=== PATIENT | male | born 1970 | race Caucasian/White ===

== ENCOUNTER 2017-11-24 13:29 | Inpatient (IN) ==
[2017-11-24] MEDS ORDERED: 0.9 % Sodium Chloride 1,000 ML IVC ONE (14:07)
[2017-11-24] MEDS ORDERED: Isovue-370 500 ML INFUS..BTL IV ONE (14:08)
[2017-11-24] MEDS ORDERED: *HR* OxyCODONE/APAP 10/325 TABLET PO ONE (14:09)
--- NOTE | 2017-11-24 14:16 | Emergency Department Note ---
Disposition Clinical Impression: Cellulitis of left elbow Sepsis Qualifiers: Sepsis type: sepsis due to unspecified organism Qualified Code(s): A41.9 - Sepsis, unspecified organism Disposition: Admitted As Inpatient Condition: Good Forms: ED Satisfaction Letter Extremity Problem HPI - General Chief complaint: ED Wound/Laceration Stated complaint: wound LUE Time Seen by Provider: 11/24/17 13:44 Source: patient Mode of arrival: private vehicle Limitations: no limitations Nursing Notes Reviewed: Yes Vital Signs Reviewed: Yes - History of Present Illness HPI Narrative: 46-year-old male no medical history presents to the ER with a complaint of left elbow wound. States the area started as what appeared to be a pimple one week ago. For the last 4-5 days and noticed redness around his elbow as well as pus coming from the wound. He denies any recent trauma. Reports subjective fevers and chills at home. He has felt dizzy and having chest pain today. Denies any recent antibiotic use. Last tetanus was one year ago. Denies a history of diabetes or IV drug abuse. Reports pain in his elbow that goes half way up into his bicipital area as well as down to his left wrist. Denies any other injuries. Pt Subjective Complaint: extremity pain, extremity swelling Onset (ago): day(s) Consistency: constant Injury Location: left, upper extremity Pain Scale: 10 Radiation: proximal, distal Improves with: nothing Worsens with: range of motion Associated symptoms: Reports: chest pain, fever, myalgias, arthralgias, swelling , redness - Related Data Home Medications Medication Instructions Recorded Confirmed No Known Home Drugs 11/24/17 11/24/17 Allergies Allergy/AdvReac Type Severity Reaction Status Date / Time No Known Allergies Allergy Verified 11/24/17 17:09 All systems ED: reviewed and negative except as stated. Constitutional: Reports: fever, chills Cardiovascular: Reports: chest pain Respiratory: Denies: dyspnea Gastrointestinal: Denies: abdominal pain, nausea, vomiting, diarrhea Musculoskeletal: Reports: joint swelling, other (Left elbow pain) Integumentary: Reports: rash, lesions Past Medical History - Past Medical History Attestation: Yes The following information was validated with the patient. Source: patient Medical history: Reports: no medical history Psychiatric history: Reports: no psych history - Social History Smoking Status: Former smoker Smokeless Tobacco Status: No Alcohol use: Reports: none Drug use: Reports: none Physical Exam - General Limitations: no limitations General appearance: alert, anxious - Head Head exam: atraumatic, normocephalic, normal inspection - Eye Eye exam: Present: normal appearance - ENT ENT exam: normal exam - Neck Neck exam: Present: normal inspection - Chest Chest inspection: Present: normal inspection, symmetric chest wall rise - Respiratory Respiratory exam: Present: normal lung sounds bilaterally - Cardiovascular Cardiovascular exam: Present: normal rhythm, tachycardia, normal heart sounds - Abdominal Exam Abdominal exam: Present: soft, Non-Tender. Absent: tenderness, distention, rigidity - Extremities Exam Extremities exam: Present: normal inspection, full ROM - Expanded Upper Extremity Exam Shoulder exam: Present: normal inspection, full ROM Arm exam: Present: normal inspection, full ROM Elbow exam: Present: swelling (There is diffuse soft tissue swelling to the left elbow as well as an open area with purulent drainage to the dorsum of the left elbow. There is a roughly 2 inch circumferential area of erythema surrounding the left elbow. The patient has tenderness extending up to the mid shaft of the left humerus as well as distal forearm. There is no crepitus. He has free range of motion of his left shoulder as well as his left wrist.) Forearm/Wrist exam: Present: normal inspection Hand exam: Present: normal inspection, full ROM - Expanded Lower Extremity Exam Hip/Pelvis exam: Present: normal inspection, full ROM Upper leg exam: Present: normal inspection, full ROM Knee exam: Present: normal inspection, full ROM Lower leg exam: Present: normal inspection, full ROM Ankle exam: Present: normal inspection, full ROM Foot/toe exam: Present: normal inspection, full ROM - Skin Skin exam: Present: warm, dry Course Course Narrative: Patient seen and examined. Vital signs reviewed. He does have limited range of motion of his left elbow due to pain and swelling. Concern at this point for septic joint versus myositis versus necrotizing fasciitis. Plan for CT imaging of the left arm, labs, lactate, blood cultures, wound culture, EKG, chest x-ray and troponin for his chest pain. Patient given IV fluids and pain medications. Likely admission. - Reevaluation(s) Reevaluation #1: Discussed results of imaging labs with patient. His pain is well controlled. He is agreeable with admission. Vital Signs Temperature 98.0 F 11/24/17 13:36 Pulse Rate 113 10/14/18 13:36 Respiratory Rate 22 11/24/17 13:36 Blood Pressure 132/88 11/24/17 13:36 O2 Sat by Pulse Oximetry 100 11/24/17 13:36 Temperature 98.0 F 11/24/17 13:42 Pulse Rate 97 11/24/17 17:00 Respiratory Rate 22 11/24/17 17:00 Blood Pressure 129/77 11/24/17 17:00 O2 Sat by Pulse Oximetry 98 11/24/17 17:00 Oxygen Delivery Oxygen Delivery Room Air Extremity Problem, Nontraumati - MDM Narrative Medical decision making narrative: 46-year-old male with 1 week of cellulitis to the left arm. He is well- appearing here. He does have range of motion of the left elbow. He is noted to have significant cellulitis and soft tissue edema surrounding the elbow. He does have a leukocytosis with a left shift. Patient received IV fluids, vancomycin and Zosyn after blood cultures and wound cultures were obtained. He is admitted to the hospitalist service for further evaluation. - Lab Data Lab results reviewed: Yes I reviewed the patient's lab results. Result diagrams: 11/24/17 14:20 11/24/17 14:20 Lab Results 11/24/17 11/24/17 11/24/17 Range/Units 14:20 14:20 14:20 WBC 16.5 H (4.3-11.1) K/mcL RBC 4.73 (4.19-5.50) M/mcL Hgb 14.0 (12.9-16.9) g/dL Hct 43.3 (37.5-50.1) % MCV 91.5 (83.0-100.0) fL MCH 29.6 (28.0-33.3) pg MCHC 32.3 (31.6-35.5) g/dL RDW 13.2 (11.5-14.5) % Plt Count 254 (140-400) K/mcL MPV 11.0 (9.4-12.4) fL Immature Gran % 1.3 (0-4) % Seg Neutrophils % 72.3 % Lymphocytes % 15.8 % Monocytes % 9.6 % Eosinophils % 0.5 % Basophils % 0.5 % Neutrophils # 11.9 H (1.6-8.9) K/mcL Lymphocytes # 2.6 (0.6-4.6) K/mcL Monocytes # 1.6 H (0.0-1.3) K/mcL Eosinophils # 0.1 (0.0-0.6) K/mcL Basophils # 0.1 (0.0-0.2) K/mcL Immature Plt Fraction 5.1 (1.1-6.1) % ESR 70 H (0-10) mm/hr PT 13.0 H (9.4-12.1) Seconds INR 1.2 Sodium (136-145) mEq/L Potassium (3.5-5.1) mEq/L Chloride (98-107) mEq/L Carbon Dioxide (23-29) mEq/L BUN (6-20) mg/dL Creatinine (0.70-1.30) mg/dL Est GFR ( Amer) (> 60) Est GFR (Non-Af Amer) (> 60) BUN/Creatinine Ratio (6-26) Glucose (70-105) mg/dL Calculated Osmolality (280-300) Lactic Acid (0.5-2.2) mmol/L Calcium (8.6-10.3) mg/dL Troponin I (< 0.04) ng/mL C-Reactive Protein (Less than 10) mg/L 11/24/17 11/24/17 11/24/17 Range/Units 14:20 14:20 14:52 WBC (4.3-11.1) K/mcL RBC (4.19-5.50) M/mcL Hgb (12.9-16.9) g/dL Hct (37.5-50.1) % MCV (83.0-100.0) fL MCH (28.0-33.3) pg MCHC (31.6-35.5) g/dL RDW (11.5-14.5) % Plt Count (140-400) K/mcL MPV (9.4-12.4) fL Immature Gran % (0-4) % Seg Neutrophils % % Lymphocytes % % Monocytes % % Eosinophils % % Basophils % % Neutrophils # (1.6-8.9) K/mcL Lymphocytes # (0.6-4.6) K/mcL Monocytes # (0.0-1.3) K/mcL Eosinophils # (0.0-0.6) K/mcL Basophils # (0.0-0.2) K/mcL Immature Plt Fraction (1.1-6.1) % ESR (0-10) mm/hr PT (9.4-12.1) Seconds INR Sodium 132 L (136-145) mEq/L Potassium 4.3 (3.5-5.1) mEq/L Chloride 98 (98-107) mEq/L Carbon Dioxide 29 (23-29) mEq/L BUN 11 (6-20) mg/dL Creatinine 0.79 (0.70-1.30) mg/dL Est GFR ( Amer) > 60 (> 60) Est GFR (Non-Af Amer) > 60 (> 60) BUN/Creatinine Ratio 14 (6-26) Glucose 145 H (70-105) mg/dL Calculated Osmolality 276 L (280-300) Lactic Acid 1.6 (0.5-2.2) mmol/L Calcium 9.4 (8.6-10.3) mg/dL Troponin I < 0.03 (< 0.04) ng/mL C-Reactive Protein 40 H (Less than 10) mg/L - Radiology Data Radiology results reviewed: Yes I reviewed the patient's radiology results. Upper Extremity CT 11/24/17 14:08 IMPRESSION: 1. Notable soft tissue swelling and cellulitis along the dorsal aspect of the distal humerus and left forearm. 2. No abnormal fluid collections/effusions about the elbow joint 3. No osseous abnormality. D/ / Alex Cheng / Alex Cheng Interpreting Provider: Alex Cheng Chest X-Ray 11/24/17 14:16 IMPRESSION: No acute process. D/ / Boo Roca MD / Boo Roca MD Interpreting Provider: Boo Roca MD - EKG Data EKG attestation: Yes I reviewed and interpreted this EKG. EKG results narrative: EKG demonstrates sinus tachycardia with a rate of 109. Normal axis. Normal intervals. Normal R-wave progression. No gross ST elevations or depressions. No acute ischemic findings. No significant changes from previous EKG dated 02/26. Nicholas - Nicholas Situation: Demographics, MOA Background: Presenting Complaint, Relevant PMH, Meds, & Allergies Assessment: Vital Signs, Course and respsone to treatment, Exam Concerns, Patient/Family Expectation, Pertinant Lab Results Recommendation: Barrier(s) to disposition, Recommendation based on pending studies, treatments, or consults Nicholas Report Given to: Dr. Rigoberto Peterson Repor Time: 17:36
--- NOTE | 2017-11-24 14:38 | Emergency Department Note ---
Disposition Clinical Impression: Cellulitis of left elbow, Sepsis Disposition: Admitted As Inpatient Condition: Good Extremity Problem HPI - General Chief complaint: ED Wound/Laceration Stated complaint: wound LUE Time Seen by Provider: 11/24/17 13:44 Source: patient Mode of arrival: private vehicle Limitations: no limitations Nursing Notes Reviewed: Yes Vital Signs Reviewed: Yes - History of Present Illness Consistency: constant Injury Location: left, upper extremity Pain Scale: 10 Improves with: nothing Worsens with: range of motion Associated symptoms: Reports: chest pain, fever, myalgias, arthralgias, swelling , redness - Related Data Home Medications Medication Instructions Recorded Confirmed No Known Home Drugs 11/24/17 11/24/17 Allergies Allergy/AdvReac Type Severity Reaction Status Date / Time No Known Allergies Allergy Verified 11/24/17 17:09 Constitutional: Reports: fever, chills Cardiovascular: Reports: chest pain Respiratory: Denies: dyspnea Gastrointestinal: Denies: abdominal pain, nausea, vomiting, diarrhea Musculoskeletal: Reports: joint swelling, other (Left elbow pain) Integumentary: Reports: rash, lesions Past Medical History - Past Medical History Medical history: Reports: no medical history Psychiatric history: Reports: no psych history - Social History Smoking Status: Former smoker Smokeless Tobacco Status: No Alcohol use: Reports: none Drug use: Reports: none Physical Exam - General Limitations: no limitations General appearance: alert, anxious Course Vital Signs Temperature 98.0 F 11/24/17 13:36 Pulse Rate 113 11/24/17 13:36 Respiratory Rate 22 11/24/17 13:36 Blood Pressure 132/88 11/24/17 13:36 O2 Sat by Pulse Oximetry 100 11/24/17 13:36 Temperature 98.0 F 11/24/17 13:42 Pulse Rate 97 11/24/17 17:00 Respiratory Rate 22 11/24/17 17:00 Blood Pressure 129/77 11/24/17 17:00 O2 Sat by Pulse Oximetry 98 11/24/17 17:00 Oxygen Delivery Oxygen Delivery Room Air Extremity Problem, Nontraumati - Lab Data Result diagrams: 11/24/17 14:20 11/24/17 14:20 Lab Results 11/24/17 11/24/17 11/24/17 Range/Units 14:20 14:20 14:20 WBC 16.5 H (4.3-11.1) K/mcL RBC 4.73 (4.19-5.50) M/mcL Hgb 14.0 (12.9-16.9) g/dL Hct 43.3 (37.5-50.1) % MCV 91.5 (83.0-100.0) fL MCH 29.6 (28.0-33.3) pg MCHC 32.3 (31.6-35.5) g/dL RDW 13.2 (11.5-14.5) % Plt Count 254 (140-400) K/mcL MPV 11.0 (9.4-12.4) fL Immature Gran % 1.3 (0-4) % Seg Neutrophils % 72.3 % Lymphocytes % 15.8 % Monocytes % 9.6 % Eosinophils % 0.5 % Basophils % 0.5 % Neutrophils # 11.9 H (1.6-8.9) K/mcL Lymphocytes # 2.6 (0.6-4.6) K/mcL Monocytes # 1.6 H (0.0-1.3) K/mcL Eosinophils # 0.1 (0.0-0.6) K/mcL Basophils # 0.1 (0.0-0.2) K/mcL Immature Plt Fraction 5.1 (1.1-6.1) % ESR 70 H (0-10) mm/hr PT 13.0 H (9.4-12.1) Seconds INR 1.2 Sodium (136-145) mEq/L Potassium (3.5-5.1) mEq/L Chloride (98-107) mEq/L Carbon Dioxide (23-29) mEq/L BUN (6-20) mg/dL Creatinine (0.70-1.30) mg/dL Est GFR ( Amer) (> 60) Est GFR (Non-Af Amer) (> 60) BUN/Creatinine Ratio (6-26) Glucose (70-105) mg/dL Calculated Osmolality (280-300) Lactic Acid (0.5-2.2) mmol/L Calcium (8.6-10.3) mg/dL Troponin I (< 0.04) ng/mL C-Reactive Protein (Less than 10) mg/L 11/24/17 11/24/17 11/24/17 Range/Units 14:20 14:20 14:52 WBC (4.3-11.1) K/mcL RBC (4.19-5.50) M/mcL Hgb (12.9-16.9) g/dL Hct (37.5-50.1) % MCV (83.0-100.0) fL MCH (28.0-33.3) pg MCHC (31.6-35.5) g/dL RDW (11.5-14.5) % Plt Count (140-400) K/mcL MPV (9.4-12.4) fL Immature Gran % (0-4) % Seg Neutrophils % % Lymphocytes % % Monocytes % % Eosinophils % % Basophils % % Neutrophils # (1.6-8.9) K/mcL Lymphocytes # (0.6-4.6) K/mcL Monocytes # (0.0-1.3) K/mcL Eosinophils # (0.0-0.6) K/mcL Basophils # (0.0-0.2) K/mcL Immature Plt Fraction (1.1-6.1) % ESR (0-10) mm/hr PT (9.4-12.1) Seconds INR Sodium 132 L (136-145) mEq/L Potassium 4.3 (3.5-5.1) mEq/L Chloride 98 (98-107) mEq/L Carbon Dioxide 29 (23-29) mEq/L BUN 11 (6-20) mg/dL Creatinine 0.79 (0.70-1.30) mg/dL Est GFR ( Amer) > 60 (> 60) Est GFR (Non-Af Amer) > 60 (> 60) BUN/Creatinine Ratio 14 (6-26) Glucose 145 H (70-105) mg/dL Calculated Osmolality 276 L (280-300) Lactic Acid 1.6 (0.5-2.2) mmol/L Calcium 9.4 (8.6-10.3) mg/dL Troponin I < 0.03 (< 0.04) ng/mL C-Reactive Protein 40 H (Less than 10) mg/L Attestation Statement - Attestation Attestation: Resident Attestation: I examined this patient and my medical decision making was reviewed with the Resident Physician. I agree with the documented findings, disposition and treatment plan as described except to the extent set forth below. We independently had [id number] contact with the patient. Resident Dr. Lopez. Patient with no past medical history presents today for evaluation of left upper extremity infection. The patient states that he noticed a pimple on his elbow approximately 1 week ago. Patient states that it has progressed now to include an erythematous region approximately 3 cm x 3 cm in nature with underlying erythema that extends both to the distal upper arm and proximal forearm. Patient does have some range of motion as well as approximate 75% of passive range of motion intact. Neurovascularly intact distally. Patient is complaining of 10 out of 10 pain. The patient has had chills but no fevers or night sweats. Patient does not have an history of previous IV drug abuse. Concern is for cellulitis versus septic bursitis versus possible septic joint. Patient will receive blood work as well as CT scan of the upper extremity for further evaluation. Fluids and antibiotics have been started after initial evaluation.
[2017-11-24 15:06] LABS: Basophils # 0.1 K/mcL (0.0-0.2); Basophils % 0.5 %; Eosinophils # 0.1 K/mcL (0.0-0.6); Eosinophils % 0.5 %; Hematocrit 43.3 % (37.5-50.1); Immature Granulocytes % 1.3 % (0-4); Immature Platelets 5.1 % (1.1-6.1); Lymphocytes # 2.6 K/mcL (0.6-4.6); Lymphocytes % 15.8 %; Mean Corpuscular HGB Conc 32.3 g/dL (31.6-35.5); Mean Corpuscular Hemoglobin 29.6 pg (28.0-33.3); Mean Corpuscular Volume 91.5 fL (83.0-100.0); Monocytes # 1.6 K/mcL (0.0-1.3); Monocytes % 9.6 %; Neutrophils # 11.9 K/mcL (1.6-8.9); Platelet Count 254 K/mcL (140-400); Red Blood Count 4.73 M/mcL (4.19-5.50); Red Cell Distribution Width 13.2 % (11.5-14.5); Segmented Neutrophils % 72.3 %
[2017-11-24 15:12] LABS: INR 1.2
[2017-11-24 15:25] LABS: BUN/Creatinine Ratio 14 (6-26); Blood Urea Nitrogen 11 mg/dL (6-20); C-Reactive Protein 40 mg/L (Less than 10); Calcium 9.4 mg/dL (8.6-10.3); Carbon Dioxide 29 mEq/L (23-29); Chloride 98 mEq/L (98-107); Glucose 145 mg/dL (70-105); Osmolality,Calculated 276 (280-300); Potassium 4.3 mEq/L (3.5-5.1); Sodium 132 mEq/L (136-145); eGFR For Non-African Americans > 60 (> 60)
[2017-11-24] MEDS ORDERED: Piperacillin/Tazobactam 3.375 GM in Water for inj. (sterile) 20 ML 20 ML IVP ONE (15:34)
[2017-11-24] MEDS ORDERED: *HR* FentaNYL (PF) 100 MCG/2 ML VIAL IVP ONE (15:45)
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
[2017-11-24] MEDS ORDERED: traMADol 50 MG TABLET PO PRN (18:44)
[2017-11-24] MEDS ORDERED: Acetaminophen 325 MG TABLET PO PRN (18:44)
[2017-11-24] MEDS ORDERED: Naloxone 0.4 MG/ML INJ IVP PRN (18:44)
[2017-11-24] MEDS ORDERED: 0.9 % Sodium Chloride 1,000 ML IVC SCH (18:45)
[2017-11-24] MEDS: *HR* OxyCODONE Immed Rel 5 MG TABLET PO PRN (19:05)
[2017-11-24] MEDS: 0.9 % Sodium Chloride 1,000 ML IVC SCH (20:26)
[2017-11-25] MEDS ORDERED: Piperacillin/Tazobactam 3.375 GM in 0.9 % Sodium Chloride Mini Bag 100 ML IVPB SCH
[2017-11-25] MEDS: Piperacillin/Tazobactam 3.375 GM in 0.9 % Sodium Chloride Mini Bag 100 ML IVPB SCH ×3 (00:45→17:06)
[2017-11-25] MEDS: *HR* OxyCODONE Immed Rel 5 MG TABLET PO PRN ×4 (01:11→20:35)
[2017-11-25 05:37] LABS: Basophils # 0.1 K/mcL (0.0-0.2); Basophils % 0.5 %; Eosinophils # 0.1 K/mcL (0.0-0.6); Eosinophils % 0.3 %; Hematocrit 40.2 % (37.5-50.1); Hemoglobin 13.1 g/dL (12.9-16.9); Immature Granulocytes % 1.3 % (0-4); Lymphocytes # 3.7 K/mcL (0.6-4.6); Lymphocytes % 20.6 %; Mean Corpuscular HGB Conc 32.6 g/dL (31.6-35.5); Mean Corpuscular Hemoglobin 29.8 pg (28.0-33.3); Mean Corpuscular Volume 91.4 fL (83.0-100.0); Mean Platelet Volume 10.8 fL (9.4-12.4); Monocytes # 1.8 K/mcL (0.0-1.3); Monocytes % 10.4 %; Neutrophils # 11.9 K/mcL (1.6-8.9); Platelet Count 236 K/mcL (140-400); Red Cell Distribution Width 13.2 % (11.5-14.5); Segmented Neutrophils % 66.9 %
[2017-11-25 05:57] LABS: Albumin 3.2 g/dL (3.5-5.7); BUN/Creatinine Ratio 15 (6-26); Bilirubin,Direct 0.3 mg/dL (0.0-0.2); Bilirubin,Indirect 0.7 mg/dL (0.0-1.2); Blood Urea Nitrogen 13 mg/dL (6-20); Calcium 8.9 mg/dL (8.6-10.3); Carbon Dioxide 26 mEq/L (23-29); Chloride 99 mEq/L (98-107); Globulin 3.1 g/dL (2.4-3.5); Glucose 199 mg/dL (70-105); Magnesium 1.5 mg/dL (1.6-2.6); Osmolality,Calculated 274 (280-300); Phosphorous 2.7 mg/dL (2.7-4.5); Potassium 4.1 mEq/L (3.5-5.1); Sodium 129 mEq/L (136-145); Total Protein 6.3 g/dL (6.4-8.9); eGFR For Non-African Americans > 60 (> 60)
[2017-11-25] MEDS: 0.9 % Sodium Chloride 1,000 ML IVC SCH ×2 (07:01→17:03)
[2017-11-25] MEDS: *HR* Heparin 5,000 UNIT/ML VIAL SQ SCH ×2 (07:54→18:51)
--- NOTE | 2017-11-25 13:06 | Electrocardiograph Report ---
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
--- NOTE | 2017-11-25 16:26 | Orthopedic Consult Note ---
Date of Encounter: 11/25/17 Time of Encounter: 12:30 Assessment and Plan (1) Cellulitis of left elbow Current Visit: Yes Status: Acute No improvement overnight with IV abx per patient. WBC increased from 16.5 to 17.7 ESR 70, CRP 40 Preliminary wound cx show Gram + cocci presumptive MRSA CT elbow showed no fluid collection however there was a small area of fluctuance noted just proximal to the open wound on posterior elbow. Discussed case with Dr. Gonsalez who recommended I&D bedside. I discussed the procedure for left elbow I&D as well as r/b/a with the patient and he expressed understanding. Consent was obtained. left elbow was prepped and draped in sterile fashion and 10cc 1% lidocaine injected to anesthetize area. Hemostates were used to widen the opening already visible. Skin was noted to be macerated and easliy . Moderate amount of purulent drainage was able to be expressed with gentle palpation from the proximal side. Iodoform packing was placed to keep area open and allow continued drainage overnight. Patient tolerated procedure well Leave dressings in place unless become saturated then may reinforce or change as necessary. Continue to elevate arm. Continue working on ROM of elbow. Pain control per hospitalist team. Will reevaluate tomorrow. Will keep NPO after midnight and if there is no improvement overnight will consider taking to operating room for deeper wound exploration. History of Present Illness Chief complaint: left elbow pain HPI: Mr. Toribio is a 46 year old male who presented to ER with left elbow pain that started about 1 weeks ago as a "pimple" on elbow and continued to worsen and get bigger over the past week. He states redness started about 5 days ago and then the pimple area opened up about 2-3 days ago and has had pus drainage since then. Denies any known injury to area. Denies IVDA. Pain continued to worsen and is worst with any motion. Denies any numbness or tingling. He has had fevers and chills for the past several days. Denies any other symptoms at this time. Denies any history of other infections or elbow issues like this in past. Past Med Surg Social Fam HX - Past Medical History Medical history: no medical history Psychiatric history: no psych history - Past Surgical History Surgical History: appendectomy Additional surgical history: right knee replaced - Social History Smoking Status: Former smoker Smokeless Tobacco Status: No Alcohol use: none Drug use: none Medications and Allergies No Known Home Drugs 11/24/17 [History] 3 Allergy/AdvReac Type Severity Reaction Status Date / Time No Known Allergies Allergy Verified 11/24/17 17:09 All Systems Reviewed: The remainder of the systems were reviewed and are negative - Constitutional Constitutional: as per HPI - Cardiovascular Cardiovascular: as per HPI - Respiratory Respiratory: as per HPI - Musculoskeletal Musculoskeletal: as per HPI Physical Exam - Constitutional Vitals: Temp Pulse Resp BP Pulse Ox 98.6 F 94 20 124/73 100 11/25/17 14:07 11/25/17 14:07 11/25/17 14:07 11/25/17 14:07 11/25/17 14:07 - Elbow left Location of pain elbow: posterior (Moderate swelling noted to posterior elbow extending to upper biceps and down to forearm, erythema noted around olecranon with macerated skin [id number] diameter area. small amount purulent drainage on dressing but no active drainage on exam. Significant tenderness to palpation of entire elbow. Elbow ROM limited 45-90 degrees. full wrist and hand motion. brisk cap refill. good sensation distally. ) Results - Labs Result Diagrams: 11/25/17 05:09 11/25/17 05:09 Labs: Abnormal lab results WBC 17.7 K/mcL (4.3-11.1) H 11/25/17 05:09 Neutrophils # 11.9 K/mcL (1.6-8.9) H 11/25/17 05:09 Monocytes # 1.8 K/mcL (0.0-1.3) H 11/25/17 05:09 ESR 70 mm/hr (0-10) H 11/24/17 14:20 PT 13.0 Seconds (9.4-12.1) H 11/24/17 14:20 Sodium 129 mEq/L (136-145) L 11/25/17 05:09 Glucose 199 mg/dL (70-105) H 11/25/17 05:09 Calculated Osmolality 274 (280-300) L 11/25/17 05:09 Magnesium 1.5 mg/dL (1.6-2.6) L 11/25/17 05:09 Direct Bilirubin 0.3 mg/dL (0.0-0.2) H 11/25/17 05:09 AST 55 Units/L (13-39) H 11/25/17 05:09 ALT 94 Units/L (7-52) H 11/25/17 05:09 C-Reactive Protein 40 mg/L (Less than 10) H 11/24/17 14:20 Serum Total Protein 6.3 g/dL (6.4-8.9) L 11/25/17 05:09 Albumin 3.2 g/dL (3.5-5.7) L 11/25/17 05:09 Albumin/Globulin Ratio 1.0 (1.1-2.2) L 11/25/17 05:09 All other labs normal. - Diagnostic results Elbow CT: report reviewed Consult Discharge Plan - Plan Referrals: NONE,PCP [Primary Care Provider] - - Attending Attestation Case and plan of care discussed with supervising physician who was available for all aspects of care.
[2017-11-25] MEDS ORDERED: 0.9 % Sodium Chloride 1,000 ML ONE (16:57)
--- NOTE | 2017-11-25 17:05 | Infectious Disease Consult ---
Date of Encounter: 11/25/17 Time of Encounter: 17:03 Assessment and Plan (1) Sepsis Status: Acute Assessment and plan: Had 3 SIRS criteria on admission Likely secondary to cellulitis/abscess of the left upper extremity Qualifiers: Qualified Code(s): A41.9 - Sepsis, unspecified organism (2) Cellulitis of left elbow Status: Acute Assessment and plan: Left elbow cellulitis with fluctuance. Status post I&D at bedside by orthopedics on 11/25/2017. CT left upper extremity on 11/24/2017: Notable for cellulitis along the dorsal aspect of the distal humerus and left forearm without fluid collection abscess or septic joint Able to extract purulence Cultures so far grown gram-positive cocci but says presumptively identified as Staphylococcus species and positive PBP2A Initial inflammatory markers: ESR 70, CRP 40 Patient is on vancomycin and Zosyn Goal vancomycin trough 10-15 We will probably DC Zosyn tomorrow if no gram-negative rods appear Will tailor antibiotics based on the culture results Agree with placing the patient in contact isolation Duration of treatment depends on the clinical picture but we can likely switch to oral antibiotics on discharge 40 Infectious Disease HPI - Data of Consult Requesting Physician: Ashly Sharma MD Primary Care Provider: PCP NONE - Consult Narrative Reason for consult: septic bursitis History of present illness: Mr. Toribio is a 46 year old male Patient is a 46 year old male was admitted to the hospital 11/24/2017 for left elbow swelling. Infectious Disease is consulted 11/25/2017 for septic bursitis. Patient has no known pertinent past medical history. Past surgical history includes right knee surgery. Patient presented to the ED with compliant of left elbow wound. Upon arrival, patient was afebrile, tachycardiac and tachypneic but otherwise hemodynamically stable. Labs revealed leukocytosis of 16.5 with neutrophils at 11.9. On basic metabolic panel hyponatremia of 129 was found. ESR was 70 and CRP was 40. Normal BUN/Creatinine ratio. Blood cultures and wound cultures were obtained at the time. Wound culture came back positive for gram positive cocci. CT of left elbow and CXR were ordered. He was started empirically on antibiotics vancomycin and zoysn. He was also started on IV Fluids as well as medications Fentanyl and oxycodone to control his pain. Since being admitted to the hospital, patient has had one fever spike last night to 100 degrees but remains hemodynamically stable. Left elbow wound remains covered by a 4 x 4 and wrapped in gauze with the erythema margins noted with blue marker. Wound was measured to be 4 x [address] of left elbow showed cellulitis and CXR was negative. We have been asked to evaluate septic bursitis. Currently patient is laying in bed appears comfortable. The elbow is surgically wrapped and pain with passive movement. He showed me a picture of earlier when they unwrapped and the I&D at bedside. CC: Ashly Sharma MD Past Med Surg Social Fam HX - Past Medical History Medical history: no medical history Psychiatric history: no psych history - Past Surgical History Surgical History: appendectomy Additional surgical history: right knee replaced - Social History Smoking Status: Former smoker Smokeless Tobacco Status: No Alcohol use: none Drug use: none Infectious Disease-CN:Meds No Known Home Drugs 11/24/17 [History] 3 Allergy/AdvReac Type Severity Reaction Status Date / Time No Known Allergies Allergy Verified 11/24/17 17:09 Review of systems: 10 point review of systems done, negative other for what mentioned in history of present illness Exam - Constitutional Vitals: Temp Pulse Resp BP Pulse Ox 98.6 F 94 20 124/73 100 11/25/17 14:07 11/25/17 14:07 11/25/17 14:07 11/25/17 14:07 11/25/17 14:07 General appearance: cooperative, no acute distress, no febrile - Head Head exam: Present: atraumatic, normocephalic - Eye Eye exam: Present: EOMI, PERRL - ENT ENT exam: Present: mucous membranes moist Additional comments: No oral thrush - Neck Neck exam: Present: full ROM, normal inspection - Respiratory Respiratory exam: Present: CTAB. Absent: wheezes - Cardiovascular Cardiovascular exam: Present: RRR, +S1, +S2 - GI/Abdominal GI/Abdominal exam: Present: normal bowel sounds, soft. Absent: tenderness - Extremities Exam Additional comments: Left elbow surgically wrapped with swelling erythema and some drainage. He also has a scar on the left wrist. - Neurological Exam Neurological exam: Present: alert, oriented X3 - Psychiatric Psychiatric exam: Present: normal affect, normal mood - Skin Skin exam: Present: normal color. Absent: rash Infectious Disease CN: Results - Labs CBC & Chem 7: 11/25/17 05:09 11/25/17 05:09 Consult Discharge Plan - Plan Referrals: NONE,PCP [Primary Care Provider] -
[2017-11-26 04:19] LABS: Basophils # 0.1 K/mcL (0.0-0.2); Basophils % 0.7 %; Eosinophils # 0.1 K/mcL (0.0-0.6); Eosinophils % 0.6 %; Hematocrit 36.9 % (37.5-50.1); Hemoglobin 11.9 g/dL (12.9-16.9); Immature Granulocytes % 1.9 % (0-4); Lymphocytes # 3.7 K/mcL (0.6-4.6); Lymphocytes % 24.5 %; Mean Corpuscular HGB Conc 32.2 g/dL (31.6-35.5); Mean Corpuscular Hemoglobin 29.2 pg (28.0-33.3); Mean Corpuscular Volume 90.4 fL (83.0-100.0); Mean Platelet Volume 10.7 fL (9.4-12.4); Monocytes # 1.5 K/mcL (0.0-1.3); Monocytes % 9.9 %; Neutrophils # 9.4 K/mcL (1.6-8.9); Platelet Count 226 K/mcL (140-400); Red Blood Count 4.08 M/mcL (4.19-5.50); Red Cell Distribution Width 13.1 % (11.5-14.5); Segmented Neutrophils % 62.4 %
[2017-11-26 04:37] LABS: BUN/Creatinine Ratio 14 (6-26); Blood Urea Nitrogen 12 mg/dL (6-20); Calcium 8.5 mg/dL (8.6-10.3); Carbon Dioxide 25 mEq/L (23-29); Chloride 99 mEq/L (98-107); Glucose 184 mg/dL (70-105); Osmolality,Calculated 275 (280-300); Potassium 3.7 mEq/L (3.5-5.1); Sodium 130 mEq/L (136-145); eGFR For Non-African Americans > 60 (> 60)
[2017-11-26] MEDS: Piperacillin/Tazobactam 3.375 GM in 0.9 % Sodium Chloride Mini Bag 100 ML IVPB SCH ×2 (05:38→19:57)
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
[2017-11-26] MEDS: 0.9 % Sodium Chloride 1,000 ML IVC SCH ×3 (08:42→21:42)
[2017-11-26] MEDS: *HR* Heparin 5,000 UNIT/ML VIAL SQ SCH ×2 (08:43→18:52)
[2017-11-26] MEDS: *HR* OxyCODONE Immed Rel 5 MG TABLET PO PRN ×2 (11:20→18:52)
--- NOTE | 2017-11-26 15:44 | Infectious Disease Progress No ---
Date of Encounter: 11/26/17 Time of Encounter: 13:00 - Assessment and Plan (1) Sepsis Current Visit: Yes Status: Acute The patient had three SIRS criteria on admission. Likely secondary to LUE cellulitis and abscess. Improved. WBC trending down. Blood cultures drawn 11/24/17 are NGTD x 2 sets. Qualifiers: Sepsis type: sepsis due to unspecified organism Qualified Code(s): A41.9 - Sepsis, unspecified organism (2) Cellulitis of left elbow Current Visit: Yes Status: Acute Location: left elbow. Causative organism: MRSA. Etiology: unclear. No reported trauma. CT left upper extremity on 11/24/2017: Notable for cellulitis along the dorsal aspect of the distal humerus and left forearm without fluid collection abscess or septic joint. Status post bedside I & D 11/25/17 by orthopedicas. Able to extract purulence. Cultures as above. ESR 70, CRP 40. Continue Vancomycin IV. Pharmacy to dose. Goal trough ~15. Discontinue Zosyn. Continue contact precautions. Duration of treatment depends on the clinical picture, but can likely transition to PO antibiotics on discharge. Monitor renal function and for drug toxicity and dose-adjust antibiotics. - Subjective Interval history: Patient seen and examined. No acute events noted overnight. Patient reports pain in the left elbow improved. Denies fevers, chills, or rigors. Denies chest pain, shortness of breath, or cough. Denies nausea, vomiting, or diarrhea. Denies abdominal pain, urinary complaints, or appetite changes. Denies oral thrush or skin rashes. States not going to surgery for repeat washout today. Infect Dis PN-Objective Data - Labs CBC & Chem 7: 11/26/17 03:53 11/26/17 03:53 Labs: Laboratory Results - last 24 hr 11/26/17 11/26/17 11/26/17 03:53 03:53 03:53 WBC 15.1 H RBC 4.08 L Hgb 11.9 L Hct 36.9 L MCV 90.4 MCH 29.2 MCHC 32.2 RDW 13.1 Plt Count 226 MPV 10.7 Immature Gran % 1.9 Seg Neutrophils % 62.4 Lymphocytes % 24.5 Monocytes % 9.9 Eosinophils % 0.6 Basophils % 0.7 Neutrophils # 9.4 H Lymphocytes # 3.7 Monocytes # 1.5 H Eosinophils # 0.1 Basophils # 0.1 Sodium 130 L Potassium 3.7 Chloride 99 Carbon Dioxide 25 BUN 12 Creatinine 0.83 Est GFR ( Amer) > 60 Est GFR (Non-Af Amer) > 60 BUN/Creatinine Ratio 14 Glucose 184 H Calculated Osmolality 275 L Calcium 8.5 L Vancomycin Trough 10 Exam - Constitutional Vitals: Temp Pulse Resp BP Pulse Ox 98.2 F 100 17 119/80 95 11/26/17 15:24 11/26/17 15:24 11/26/17 15:24 11/26/17 15:24 11/26/17 15:24 General appearance: average body habitus, cooperative, no acute distress - Head Head exam: Present: atraumatic, normal inspection, normocephalic - Eye Eye exam: Present: EOMI, normal appearance, PERRL Pupils: Present: normal accommodation - ENT ENT exam: Present: mucous membranes moist - Neck Neck exam: Present: normal inspection - Respiratory Respiratory exam: Present: CTAB. Absent: rales, respiratory distress, rhonchi, wheezes - Cardiovascular Cardiovascular exam: Present: RRR, +S1, +S2 - GI/Abdominal GI/Abdominal exam: Present: normal bowel sounds, soft. Absent: distended, tenderness - Extremities Exam Extremities exam: Present: joint swelling (left elbow), tenderness (left elbow) . Absent: normal inspection (Mild edema noted to the left upper extremity. Left elbow dressing C/D/I.), pedal edema - Neurological Exam Neurological exam: Present: alert, oriented X3, no focal deficits - Psychiatric Psychiatric exam: Present: normal affect, normal mood - Skin Skin exam: Present: dry, intact, normal color, warm Consult Discharge Plan - Plan Referrals: NONE,PCP [Primary Care Provider] - - Attending Attestation I examined this patient and my medical decision-making was reviewed with the Resident Physician. I agree with the documented findings, disposition and treatment plan as described except to the extent set forth below.
[2017-11-26] MEDS ORDERED: Piperacillin/Tazobactam 3.375 GM in 0.9 % Sodium Chloride Mini Bag 100 ML IVPB SCH (16:00)
--- NOTE | 2017-11-26 17:36 | Orthopedics Progress Note ---
Date of Encounter: 11/26/17 Time of Encounter: 11:45 - Assessment and Plan (1) Cellulitis of left elbow Current Visit: Yes Status: Acute Dressings changed today and packing was not present. Spoke with nurse who states a medical student removed this earlier this morning with the dressing change. Do not need to continue with packing at this point. Begin local wound care washing with soap/water 3xdaily and recover with dry gauze and kerlix dressings. Due to seeing improvement to swelling and motion and WBC has now decreased to 15.1 patient does not want to go to surgery for washout. He wants to continue with conservative options and allow to continue to drain. Wound cx results +MRSA. ID is on board and guiding abx treatment - DC zosyn and continue with IV vancomycin. Continue to elevate as needed. Continue working on ROM of elbow as tolerated. Subjective Principal diagnosis: left elbow cellulitis and abscess Interval history: Patient states left elbow continues to have pain, minimal improvement. No events overnight. Denies any new pains or numbness. States dressings had to be changed earlier due to drainage saturating through. Objective Vital signs: Vital Signs Temp Pulse Resp BP Pulse Ox 11/26/17 15:24 98.2 F 100 17 119/80 95 11/26/17 10:19 98.3 F 94 16 110/76 96 11/26/17 07:09 98.5 F 100 16 112/74 96 11/26/17 02:50 99.5 F 110 16 110/68 95 11/26/17 00:26 97.9 F 115 15 117/70 98 11/25/17 19:16 100.0 F H 110 15 103/71 97 Intake and Output 11/26/17 11/26/17 11/26/17 07:59 15:59 23:59 Intake Total 250 / 250 100 / 100 Output Total 600 / 600 850 / 850 Balance -350 / -350 -750 / -750 Intake: IV Fluids 250 / 250 100 / 100 Zosyn 3.375 GM In 0.9 % Sodium 100 / 100 Chloride (Mini-Bag +) 100 ML @ 25 mls/hr IVPB Q8HR [facility] Rx#: [id number] Vancocin 1,500 MG In 0.9 % 250 / 250 Sodium Chloride 250 ML @ 167 mls/hr IVPB Q12H [facility] Rx#: [id number] Oral 0 / 0 Output: Urine 600 / 600 850 / 850 Other: Meal NPO # Bowel Movements 0 0 Weight 101.8 kg Blood Glucose* 135 95 110 Patient Weight 11/26/17 23:59 Weight 101.8 kg Incision: red (continued erythema within borders drawn 2 days ago. continued swelling around elbow but swelling has significantly decreased from biceps and forearm. Wound is still open with purulent drainage on dressings but no active drainage on exam or with palpation to area. Still signficantly tender to palpation around wound. Now has full extension of ebow flexion still limited to 90 degrees. full wrist and hand ROM, good sensation distally.) - Labs CBC & BMP: 11/26/17 03:53 11/26/17 03:53 Labs: Abnormal lab results WBC 15.1 K/mcL (4.3-11.1) H 11/26/17 03:53 RBC 4.08 M/mcL (4.19-5.50) L 11/26/17 03:53 Hgb 11.9 g/dL (12.9-16.9) L 11/26/17 03:53 Hct 36.9 % (37.5-50.1) L 11/26/17 03:53 Neutrophils # 9.4 K/mcL (1.6-8.9) H 11/26/17 03:53 Monocytes # 1.5 K/mcL (0.0-1.3) H 11/26/17 03:53 ESR 70 mm/hr (0-10) H 11/24/17 14:20 PT 13.0 Seconds (9.4-12.1) H 11/24/17 14:20 Sodium 130 mEq/L (136-145) L 11/26/17 03:53 Glucose 184 mg/dL (70-105) H 11/26/17 03:53 Calculated Osmolality 275 (280-300) L 11/26/17 03:53 Calcium 8.5 mg/dL (8.6-10.3) L 11/26/17 03:53 Magnesium 1.5 mg/dL (1.6-2.6) L 11/25/17 05:09 Direct Bilirubin 0.3 mg/dL (0.0-0.2) H 11/25/17 05:09 AST 55 Units/L (13-39) H 11/25/17 05:09 ALT 94 Units/L (7-52) H 11/25/17 05:09 C-Reactive Protein 40 mg/L (Less than 10) H 11/24/17 14:20 Serum Total Protein 6.3 g/dL (6.4-8.9) L 11/25/17 05:09 Albumin 3.2 g/dL (3.5-5.7) L 11/25/17 05:09 Albumin/Globulin Ratio 1.0 (1.1-2.2) L 11/25/17 05:09 Consult Discharge Plan - Plan Referrals: NONE,PCP [Primary Care Provider] -
[2017-11-27 01:46] LABS: Basophils # 0.1 K/mcL (0.0-0.2); Basophils % 0.9 %; Eosinophils # 0.2 K/mcL (0.0-0.6); Eosinophils % 1.2 %; Hematocrit 36.8 % (37.5-50.1); Hemoglobin 12.1 g/dL (12.9-16.9); Immature Granulocytes % 2.5 % (0-4); Lymphocytes # 3.2 K/mcL (0.6-4.6); Lymphocytes % 24.6 %; Mean Corpuscular HGB Conc 32.9 g/dL (31.6-35.5); Mean Corpuscular Hemoglobin 29.6 pg (28.0-33.3); Mean Platelet Volume 10.9 fL (9.4-12.4); Monocytes # 1.2 K/mcL (0.0-1.3); Monocytes % 9.2 %; Neutrophils # 7.9 K/mcL (1.6-8.9); Platelet Count 255 K/mcL (140-400); Red Blood Count 4.09 M/mcL (4.19-5.50); Red Cell Distribution Width 13.1 % (11.5-14.5); Segmented Neutrophils % 61.6 %
[2017-11-27 02:04] LABS: Chol/HDL Ratio 4.8 (0-4.9)
[2017-11-27 02:05] LABS: BUN/Creatinine Ratio 16 (6-26); Blood Urea Nitrogen 14 mg/dL (6-20); Calcium 8.9 mg/dL (8.6-10.3); Carbon Dioxide 26 mEq/L (23-29); Chloride 99 mEq/L (98-107); Glucose 183 mg/dL (70-105); Magnesium 1.8 mg/dL (1.6-2.6); Osmolality,Calculated 283 (280-300); Sodium 134 mEq/L (136-145); eGFR For Non-African Americans > 60 (> 60)
[2017-11-27] MEDS: *HR* OxyCODONE Immed Rel 5 MG TABLET PO PRN ×3 (04:08→14:55)
[2017-11-27] MEDS: *HR* Heparin 5,000 UNIT/ML VIAL SQ SCH (05:50)
[2017-11-27 08:25] LABS: Estimated Average Glucose 123 mg/dl; Hemoglobin A1C 5.9 %
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
[2017-11-27] MEDS: 0.9 % Sodium Chloride 1,000 ML IVC SCH (09:50)
[2017-11-27 11:10] VITALS: BP 123/84
--- NOTE | 2017-11-27 13:22 | Orthopedics Progress Note ---
Date of Encounter: 11/27/17 Time of Encounter: 12:45 - Assessment and Plan (1) Cellulitis of left elbow Current Visit: Yes Status: Acute Improved erythema and swelling, minimal drainage on dressings. Full ROM of elbow now. Pain improved. Continue local wound care washing with soap/water 3xdaily and recover with dry gauze and kerlix dressings until fully healed. WBC nicreased again to 12.8 Wound cx results +MRSA. ID is on board and guiding abx treatment - still on IV vancomycin possible transition to PO abx before discharge home likely today. Continue to elevate as needed. Continue working on ROM of elbow as tolerated. Will follow up with Francisca Godoy PA-C in [facility] office on 12/04/17 at 10:00am. Subjective Principal diagnosis: left elbow cellulitis and abscess Interval history: Patient states pain has improved and he has better motion today. He is currently eating lunch with his left arm. Denies any other new concerns and states overall feeling better and wants to go home. Objective Vital signs: Vital Signs Temp Pulse Resp BP Pulse Ox 11/27/17 11:03 98.2 F 94 18 123/84 97 11/27/17 07:04 98.3 F 97 18 122/77 95 11/27/17 04:32 98.3 F 101 20 105/68 95 11/27/17 00:27 99.7 F H 109 16 109/62 96 11/26/17 19:36 98.2 F 105 15 129/86 99 11/26/17 15:24 98.2 F 100 17 119/80 95 Intake and Output 11/26/17 11/27/17 11/27/17 23:59 07:59 15:59 Intake Total 1490 / 1490 950 / 950 240 / 240 Output Total 0 / 0 825 / 825 Balance 1490 / 1490 125 / 125 240 / 240 Intake: IV Fluids 1250 / 1250 950 / 950 0.9 % Sodium Chloride 1,000 ML 1000 / 1000 950 / 950 @ 100 mls/hr IVC .Q10H [facility] Rx#: [id number] Vancocin 1,500 MG In 0.9 % 250 / 250 Sodium Chloride 250 ML @ 167 mls/hr IVPB Q12H [facility] Rx#: [id number] Oral 240 / 240 0 / 0 240 / 240 Output: Urine 0 / 0 825 / 825 Other: Meal Dinner Lunch Percent of Meal Consumed 50% 50% # Bowel Movements 0 Weight 101.8 kg Blood Glucose* 110 98 124 Patient Weight 11/27/17 23:59 Weight 101.8 kg Incision: draining (continued drainage on dressings minimal today. Erythema and swelling much improved to left elbow. compartments soft. no has full ROM of elbow. NV intact distally.) - Labs CBC & BMP: 11/27/17 00:48 11/27/17 00:48 Labs: Abnormal lab results WBC 12.8 K/mcL (4.3-11.1) H 11/27/17 00:48 RBC 4.09 M/mcL (4.19-5.50) L 11/27/17 00:48 Hgb 12.1 g/dL (12.9-16.9) L 11/27/17 00:48 Hct 36.8 % (37.5-50.1) L 11/27/17 00:48 ESR 70 mm/hr (0-10) H 11/24/17 14:20 PT 13.0 Seconds (9.4-12.1) H 11/24/17 14:20 Sodium 134 mEq/L (136-145) L 11/27/17 00:48 Glucose 183 mg/dL (70-105) H 11/27/17 00:48 POC Glucose 124 mg/dL (70-99) H 11/27/17 11:08 Hemoglobin A1c 5.9 % (-5.6) H 11/27/17 00:48 Direct Bilirubin 0.3 mg/dL (0.0-0.2) H 11/25/17 05:09 AST 55 Units/L (13-39) H 11/25/17 05:09 ALT 94 Units/L (7-52) H 11/25/17 05:09 C-Reactive Protein 40 mg/L (Less than 10) H 11/24/17 14:20 Serum Total Protein 6.3 g/dL (6.4-8.9) L 11/25/17 05:09 Albumin 3.2 g/dL (3.5-5.7) L 11/25/17 05:09 Albumin/Globulin Ratio 1.0 (1.1-2.2) L 11/25/17 05:09 HDL Cholesterol 21 mg/dL (40-59) L 11/27/17 00:48 Vancomycin Trough 17 mcg/mL (5-10) H 11/27/17 00:48 Consult Discharge Plan - Plan Referrals: Francisca Godoy, PAC [Physician Manager Oncology] - 12/04/17 10:10 am
--- NOTE | 2017-11-27 14:03 | Infectious Disease Progress No ---
Date of Encounter: 11/27/17 Time of Encounter: 14:01 - Assessment and Plan (1) Sepsis Status: Acute The patient had three SIRS criteria on admission. Likely secondary to LUE cellulitis and abscess. Improved. WBC trending down. Blood cultures drawn 11/24/17 are NGTD x 2 sets. Qualifiers: Sepsis type: sepsis due to unspecified organism Qualified Code(s): A41.9 - Sepsis, unspecified organism (2) Cellulitis of left elbow Status: Acute Location: left elbow. Causative organism: MRSA. Etiology: unclear. No reported trauma. CT left upper extremity on 11/24/2017: Notable for cellulitis along the dorsal aspect of the distal humerus and left forearm without fluid collection abscess or septic joint. Status post bedside I & D 11/25/17 by orthopedicas. Able to extract purulence. Cultures as above. ESR 70, CRP 40. Continue Vancomycin IV. Pharmacy to dose. Goal trough ~15. Continue contact precautions. Duration of treatment depends on the clinical picture, but can likely transition to PO Bactrim DS 1 tab PO BID when ready for discharge to complete a 14 day course. Treat through 12/09/17. Follow up with ortho as planned. Monitor renal function and for drug toxicity and dose-adjust antibiotics. - Subjective Interval history: Patient seen and examined. No acute events noted overnight. Patient reports pain in the left elbow improved. Denies fevers, chills, or rigors. Denies chest pain, shortness of breath, or cough. Denies nausea, vomiting, or diarrhea. Denies abdominal pain, urinary complaints, or appetite changes. Denies oral thrush or skin rashes. Reports headache this morning, but states he thinks it is because he hasn't gotten much sleep here in the hospital. Infect Dis PN-Objective Data - Labs CBC & Chem 7: 11/27/17 00:48 11/27/17 00:48 Labs: Laboratory Results - last 24 hr 11/27/17 11/27/17 11/27/17 00:48 00:48 00:48 WBC 12.8 H RBC 4.09 L Hgb 12.1 L Hct 36.8 L MCV 90.0 MCH 29.6 MCHC 32.9 RDW 13.1 Plt Count 255 MPV 10.9 Immature Gran % 2.5 Seg Neutrophils % 61.6 Lymphocytes % 24.6 Monocytes % 9.2 Eosinophils % 1.2 Basophils % 0.9 Neutrophils # 7.9 Lymphocytes # 3.2 Monocytes # 1.2 Eosinophils # 0.2 Basophils # 0.1 Sodium Potassium Chloride Carbon Dioxide BUN Creatinine Est GFR ( Amer) Est GFR (Non-Af Amer) BUN/Creatinine Ratio Glucose POC Glucose Est Mean Plasma Glucose 123 Hemoglobin A1c 5.9 H Calculated Osmolality Calcium Magnesium Triglycerides 111 Cholesterol 101 LDL Cholesterol, Calc 58 VLDL Cholesterol, Calc 22 HDL Cholesterol 21 L Cholesterol/HDL Ratio 4.8 Vancomycin Trough 11/27/17 11/27/17 11/27/17 00:48 00:48 07:08 WBC RBC Hgb Hct MCV MCH MCHC RDW Plt Count MPV Immature Gran % Seg Neutrophils % Lymphocytes % Monocytes % Eosinophils % Basophils % Neutrophils # Lymphocytes # Monocytes # Eosinophils # Basophils # Sodium 134 L Potassium 4.0 Chloride 99 Carbon Dioxide 26 BUN 14 Creatinine 0.86 Est GFR ( Amer) > 60 Est GFR (Non-Af Amer) > 60 BUN/Creatinine Ratio 16 Glucose 183 H POC Glucose 98 Est Mean Plasma Glucose Hemoglobin A1c Calculated Osmolality 283 Calcium 8.9 Magnesium 1.8 Triglycerides Cholesterol LDL Cholesterol, Calc VLDL Cholesterol, Calc HDL Cholesterol Cholesterol/HDL Ratio Vancomycin Trough 17 H 11/27/17 11:08 WBC RBC Hgb Hct MCV MCH MCHC RDW Plt Count MPV Immature Gran % Seg Neutrophils % Lymphocytes % Monocytes % Eosinophils % Basophils % Neutrophils # Lymphocytes # Monocytes # Eosinophils # Basophils # Sodium Potassium Chloride Carbon Dioxide BUN Creatinine Est GFR ( Amer) Est GFR (Non-Af Amer) BUN/Creatinine Ratio Glucose POC Glucose 124 H Est Mean Plasma Glucose Hemoglobin A1c Calculated Osmolality Calcium Magnesium Triglycerides Cholesterol LDL Cholesterol, Calc VLDL Cholesterol, Calc HDL Cholesterol Cholesterol/HDL Ratio Vancomycin Trough Exam - Constitutional Vitals: Temp Pulse Resp BP Pulse Ox 98.2 F 94 18 123/84 97 11/27/17 11:03 11/27/17 11:03 11/27/17 11:03 11/27/17 11:03 11/27/17 11:03 General appearance: average body habitus, cooperative, no acute distress - Head Head exam: Present: atraumatic, normal inspection, normocephalic - Eye Eye exam: Present: EOMI, normal appearance, PERRL Pupils: Present: normal accommodation - ENT ENT exam: Present: mucous membranes moist - Neck Neck exam: Present: normal inspection - Respiratory Respiratory exam: Present: CTAB. Absent: rales, respiratory distress, rhonchi, wheezes - Cardiovascular Cardiovascular exam: Present: +S1, +S2, tachycardia. Absent: irregular rhythm - GI/Abdominal GI/Abdominal exam: Present: normal bowel sounds, soft. Absent: distended, tenderness - Extremities Exam Extremities exam: Absent: normal inspection (Left posterior elbow ulcer noted with wound bed yellow slough. No purulence noted. ROM improved. Erythema, warmth, and tenderness minimal.) - Neurological Exam Neurological exam: Present: alert, oriented X3, no focal deficits - Psychiatric Psychiatric exam: Present: normal affect, normal mood - Skin Skin exam: Present: dry, intact, normal color, warm Consult Discharge Plan - Plan Instructions: Sulfamethoxazole/Trimethoprim (By mouth), Oxycodone/Acetaminophen (By mouth), Cellulitis (DC) Additional Instructions: PCP follow up in 5-7 days for further eval of sodium levels and blood sugars. Continue local wound care washing with soap/water 3xdaily and recover with dry gauze and kerlix dressings until fully healed Referrals: Francisca Godoy, PAC [Physician [facility]] - 12/04/17 10:10 am Prescriptions: OxyCODONE Immed Rel [Roxicodone 5 MG] 5 mg PO Q6HR PRN 3 Days #12 tablet PRN Reason: Severe Pain Sulfamethoxazole/Trimeth DS [Bactrim DS] 1 each PO BID 13 Days #26 tablet - Attending Attestation I examined this patient and my medical decision-making was reviewed with the Resident Physician. I agree with the documented findings, disposition and miguelangel atment plan as described except to the extent set forth below.
[2017-11-27] MEDS ORDERED: Aminoglycoside Consult 1 EACH MC ONE (15:00)
== END 2017-11-27 15:01 | disposition home or self-care (01) | DRG 854 ==
LOC: EMEROOARM 13:29 → 3ANU 13:29 → SUATTDRO 11-25 10:53
PROVIDERS: ADMIT Internal Medicine; ATTEND Internal Medicine